=== PATIENT | male | born 1955 | race African-American/Black ===

== ENCOUNTER 2018-05-05 17:04 | Outpatient (CLI) | payer BC ==
--- NOTE | 2018-05-05 18:00 | RAD ---
FOUR VIEWS LEFT KNEE: 05/05/18 HISTORY: Pain. COMPARISON: None. FINDINGS: Moderate to severe degenerative change in the medial compartment and patellofemoral compartment. No f racture. No joint effusion. IMPRESSION: Bicompartmental degenerative change. POS: [facility]
== END 2018-05-05 17:05 | disposition home or self-care (01) ==
LOC: SCSRAD 17:04
PROVIDERS: ATTEND Family Medicine
DX: M25.562 Pain in left knee (principal); M17.12 Unilateral primary osteoarthritis, left knee
CPT/HCPCS: 36415; 80053; 80061; 81001; 83540; 83550; 84443; 85025; G0103